=== PATIENT | male | born 1950 | race Caucasian/White ===

== ENCOUNTER 2016-09-23 12:26 | Inpatient (IN) | payer OTHER, MEDICARE ==
--- NOTE | 2016-09-23 13:19 | EDPHY ---
H & P Time Seen by Provider: 09/23/16 12:55 HPI/ROS: CHIEF COMPLAINT: Worsening depression, ataxia, word-finding difficulty HISTORY OF PRESENT ILLNESS: 66-year-old patient arrives with his and friend who was another management development specialist. Over the last 2 weeks he has been increasingly depressed and off balance and trouble with word finding. He could not remember that he was on paroxetine worse in the past he can always remember his medications. He was on a fishing trip with his friend last week and was increasingly depressed and worried that he had missed a squamous cell skin cancer on a patient. He was talking about suicide. He is increasingly depressed. He also notes that tremor and the above-mentioned neurologic symptoms. No headache or visual symptoms. He was sent here by his primary care physician for inpatient evaluation. The patient and his family think it is likely due to his multiple psychiatric medications which include paroxetine and Abilify and Lamictal and olanzapine which was started on September 06. REVIEW OF SYSTEMS: Eye: no change in vision ENT: no sore throat Cardiac: no chest pain or syncope Pulmonary: no cough or SOB Abdomen: no vomiting, diarrhea, abdominal pain Musculoskeletal: no back pain Skin: no rash Neuro: No headache, as above. Constitutional: no fever : no urinary symptoms A comprehensive 10 point review of systems is otherwise negative aside from elements mentioned in the history of present illness. 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 Eyes: No scleral icterus. ENT, Mouth: Normal mucous membranes. Respiratory: Normal respiratory effort, breath sounds equal, lungs are clear to auscultation. Cardiovascular: Regular rate and rhythm. Gastrointestinal: Abdomen is soft and non tender. Neurological: Alert and oriented x3. Speech fluent but slow. Face symmetric, normal movement and sensation in all extremities. No pronator drift and normal [id number] bilaterally, normal heel to taylor bilaterally, slight resting tremor. Skin: Warm and dry, no rashes. Musculoskeletal: No peripheral edema and no joint swelling. No meningeal signs. Psychiatric: Not agitated. Admits depression and SI, but says "I'm a coward" and denies actual intent to harm self. Emergency Department course/MDM: Plan for MRI, labs to include chemistry panel and CBC. Psychiatric evaluation if MRI normal, admission with Neurology consultation if MRI shows stroke or other a subacute abnormality. Discussed with Juany 1405, patient took tip jar at restaurant, tried to shave w /comb, put cell phone in eyeglass case. Recommends inpatient psych admission. 1510: Results discussed with patient and family, symptoms most likely due to psychiatric medications. Psychiatric evaluation requested for inpatient hospitalization and adjustment of medications. 182: Patient has had psychiatric evaluation and plan at this point is for inpatient hospitalization. 1999: Placed on a mental health hold for suicidal ideation and severe depression, and some erratic behavior as danger to self and gravely disabled. This is done in conjunction with mental health tile layer supervisor. The patient will be transferred to [facility] for inpatient psychiatric hospital bed not available at this facility, in stable condition; accepting physician is Dr. Dow. Smoking Status: Never smoked Constitutional: Initial Vital Signs Temperature (C) 37.6 C 09/23/16 12:44 Heart Rate 98 09/23/16 12:44 Respiratory Rate 16 09/23/16 12:44 Blood Pressure 149/92 H 09/23/16 12:44 O2 Sat (%) 94 09/23/16 12:44 O2 Delivery Mode Room Air Allergies/Adverse Reactions: pseudoephedrine HCl [From Actifed] Allergy (Intermediate, Verified 09/23/16 12: 51) Other-Enter Comments triprolidine HCl [From Actifed] Allergy (Verified 09/23/16 12:51) Home Medications: Medication Instructions Recorded ARIPiprazole 09/23/16 Atorvastatin Calcium 09/23/16 L-Thyroxine 09/23/16 LORazepam 09/23/16 Lamotrigine 09/23/16 Lisinopril 09/23/16 Modafinil 09/23/16 Olanzapine 09/23/16 Paroxetine ER 09/23/16 Propranolol HCl 09/23/16 Quetiapine Fumarate 09/23/16 ZOLPIDEM TARTRATE 09/23/16 Medical Decision Making - Diagnostics Imaging: MRI per Dr. Emile Cardona at 1500-for stroke or other acute abnormality. - Data Points Laboratory Results: Laboratory Results 09/23/16 13:29 09/23/16 13:29 Departure - Departure Disposition: [facility] IP Clinical Impression: Medication adverse effect Depression Qualifiers: Depression Type: major depressive disorder Major depression recurrence: recurrent Active/Remission status: currently active Major depression episode severity: moderate Qualified Code(s): F33.1 - Major depressive disorder, recurrent, moderate Condition: Good
[2016-09-23 13:35] LABS: % IMMATURE GRANULYOCYTES 0.3 % (0.0-1.1); ABSOLUTE IMMATURE GRANULOCYTES 0.02 10^3/uL (0.00-0.10); ADD DIFF? NO; ADD MORPH? NO; ADD SCAN? NO; ATYPICAL LYMPHOCYTE FLAG 10 (0-99); FRAGMENT RBC FLAG 0 (0-99); HEMATOCRIT 37.8 % (40.0-51.0); LEFT SHIFT FLG 0 (0-99); LIPEMIA HEMOLYSIS FLAG 90 (0-99); MEAN CELL HEMOGLOBIN 33.3 pg (27.9-34.1); MEAN CELL HEMOGLOBIN CONCENTR. 34.4 g/dL (32.4-36.7); MEAN CELL VOLUME 96.9 fL (81.5-99.8); MEAN PLATELET VOLUME 9.8 fL (8.7-11.7); PLATELET CLUMPS FLAG 10 (0-99); PLATELET COUNT 199 10^3/uL (150-400); RED CELL DISTRIBUTION WIDTH 13.7 % (11.5-15.2)
[2016-09-23 14:10] LABS: ANION GAP 11 mEq/L (8-16); CALCIUM 9.7 mg/dL (8.5-10.4); CARBON DIOXIDE 25 mEq/l (22-31); CHLORIDE 108 mEq/L (97-110); CREATININE 0.7 mg/dL (0.7-1.3); ETHANOL SERUM < 10 mg/dL (0-10); GLOMERULAR FILTRATION RATE > 60; GLUCOSE 92 mg/dL (70-100); POTASSIUM 4.3 mEq/L (3.5-5.2); SODIUM 144 mEq/L (134-144)
[2016-09-24] MEDS ORDERED: MAGNESIUM HYDROXIDE 30 ML UDCUP PO PRN (01:00)
[2016-09-24] MEDS ORDERED: ACETAMINOPHEN 325 MG TAB PO PRN (01:00)
[2016-09-24] MEDS ORDERED: MAG HYDROX/AL HYDROX/SIMETH 30 ML UDCUP PO PRN (01:00)
[2016-09-24] MEDS: ZOLPIDEM TARTRATE 5 MG TAB PO PRN ×2 (01:13→21:00)
[2016-09-24] MEDS: PARoxetine CR 25 MG TAB PO SCH (11:44)
[2016-09-24] MEDS: LISINOPRIL 20 MG TAB PO SCH (11:44)
[2016-09-24 14:53] LABS: % SATURATION 56 % (20-55); TOTAL IRON BINDING CAPACITY 287 ug/dL (260-490)
--- NOTE | 2016-09-24 15:05 | BCON ---
[f rep st] BEHAVIORAL HEALTH CONSULTATION INTERNAL MEDICINE CONSULTATION DATE OF CONSULTATION: 09/24/2016 REFERRING PHYSICIAN: Leslee Dow MD REASON FOR CONSULTATION: Medical clearance for inpatient behavioral health stay. 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 He also has noticed a tremor. He was concerned that his neurologic symptoms were resulting from his psychiatric medications. In the emergency department, an MRI of the brain was obtained which showed only minimal white matter changes, and so he was admitted to inpatient Psychiatry. Had he had an abnormal MRI he would [facility]. He currently reports that he is feeling better, and he is without any acute medical complaints. PAST MEDICAL HISTORY: 1. Depression. 2. Hypothyroidism. 3. Essential tremor for which he has been treated with propranolol. 4. Meniscus tear in one of his knees which has not been treated surgically. PAST SURGICAL HISTORY: He has had hernia repairs. MEDICATIONS: Prior to admission. 1. Aripiprazole. 2. Atorvastatin. 3. Levothyroxine. 4. Lorazepam. 5. Lamotrigine. 6. Lisinopril. 7. Modafinil. 8. Olanzapine. 9. Paroxetine. 10. Propranolol. 11. Quetiapine. 12. Zolpidem. ALLERGIES: Listed to pseudoephedrine and triprolidine. SOCIAL HISTORY: He is . He lives with his . He is a recently retired business support coordinator. He also reports that he has had other recent stressors, including remodeling a house and trying to sell it and the of his mother. FAMILY HISTORY: Noncontributory. REVIEW OF SYSTEMS: He reports that he has a tremor. He has had poor sleep and for a number of years has been taking zolpidem as well as lorazepam. He habitually has 1 glass of wine a night but in recent weeks had increased it to drinking bourbon. He has had some weight loss along with his depression. He denies neurologic symptoms, including no headaches, vision changes, difficulty swallowing, weakness, numbness or tingling of the extremities. He has had a shuffling gait, but that has improved with discontinuing his multiple psychiatric medications. He denies nausea, vomiting, constipation, or diarrhea. He denies chest pain or palpitations. He denies dyspnea or cough. He denies joint pain or joint swelling, and otherwise a 10-point review of systems is negative. PHYSICAL EXAM: VITAL SIGNS: Blood pressure is 177/90, heart rate is 79, respiratory rate is 12, oxygen saturation is 96% on room air, temperature is 37.1 degrees centigrade. Weight is 66.7 kg for a body mass index of 23.7. GENERAL: This is a well-nourished, well-developed man, looks somewhat older than his chronologic age, cooperative, and in no acute distress. HEENT: Extraocular movements are intact. Pupils are equal, round, and reactive to light. Mucous membranes are moist. Dentition is in good condition. There is no posterior oropharyngeal mucus. NECK: Supple. HEART: There is a regular rate and rhythm with no murmurs, rubs, or gallops. LUNGS: Clear to auscultation bilaterally. ABDOMEN: Soft, nontender, nondistended with normoactive bowel sounds. EXTREMITIES: There is no cyanosis, clubbing, or edema. NEUROLOGIC: He is alert and oriented x3. Cranial nerves 2-12 are grossly intact. There is no focal weakness. Sensation is intact to light touch , and gait is within normal limits. LABORATORY STUDIES: Drawn in the emergency department. CBC revealed anemia with a hemoglobin of 13 and hematocrit of 37.8. His MCV was normal. Platelet count was normal. Serum chemistry showed normal renal function and electrolytes. Toxicology screen within the serum was negative for ethyl alcohol. Toxicology screen in the urine was non-negative for benzodiazepines and was otherwise negative for substances of abuse. ASSESSMENT/RECOMMENDATIONS: 1. Mental health issues. Pending further evaluation and management per Psychiatry and the mental health team. 2. Hypothyroidism. Within normal TSH in June. I see no indications to repeat a TSH. 3. Tremor and markedly elevated blood pressure. These may be signs of benzodiazepine withdrawal. He also reports increased use of alcohol in recent weeks. I see lorazepam has been ordered. Advise considering the [facility] protocol to manage possible withdrawal. 4. Benzodiazepine dependence. 5. Anemia of unclear etiology. I have ordered an iron panel to be added onto the blood samples that were drawn yesterday. 6. Recent word-finding difficulties and gait abnormality. These may be related to a combination of use of sedatives and hypnotics as well as alcohol, lack of sleep and recent stressors. He appears to be doing better now that he is not taking psychiatric medications and is in a place where his depression can be addressed. Consider a cognitive evaluation by Speech Therapy while he is inpatient or by a clinical psychologist after discharge. I see no medical contraindications to the patient's continued stay on the inpatient behavioral health unit or to any psychiatric medications or procedures. Thank you very much for including me in the care of the patient and please do not hesitate to contact me or the hospitalist service should there be need for further medical evaluation. /[id number]/MODL MTDD
--- NOTE | 2016-09-24 20:16 | BAPA ---
[f rep st] ADMISSION PSYCHIATRIC ASSESSMENT DATE OF SERVICE: 09/24/2016 CHIEF COMPLAINT: "I have been having a really hard time." HISTORY OF PRESENT ILLNESS: The patient is a 66-year-old male with a history of major depression. He reports a single episode of major depression approximately 10 years ago, for which he was treated with Paxil and Wellbutrin, and did well. He was managed over the next several years with the addition of Lamictal, though it is unclear exactly why. He states that he stayed stable and after approximately 5 years discontinued both the Lamictal and Wellbutrin, and continued on the Paxil alone. He states that he maintained a euthymic state until approximately 6 months ago when he began to feel more depressed. He states that his mother in January and that this was upsetting to him. Specifically, he stated that he had regretted "being too tough with her." He states that he was trying to encourage her to get out of bed and felt that she had "many more years of a productive life." When she passed, he felt guilty that he had been in his opinion too tough. He has perseverated on this and began to feel more depressed since March. He saw his outpatient psychiatrist, Dr. Scott, who put him back on Wellbutrin, but this caused significant tremor. He also experienced some anxiety and agitation at this time , and the Wellbutrin was discontinued. Dr. Scott then started Abilify which initially was helpful, but then he developed more tremor again, and it was discontinued after about 6-8 weeks of therapy. Lamictal was restarted and then Seroquel, Zyprexa, and propranolol in succession. In July of this year, he states he became more tremulous, had difficulty with ambulation, and became confused. 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 This progressed, and he became concerned about his ability to perform safely at work. He also began to perseverate about his fear about bad outcomes of patients he has previously treated. 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 He became particularly worried about one case that he felt he missed a potential diagnosis of a patient. He states that 10 years ago, this was also the case. When he gets depressed and anxious, he begins to perseverate in this way. Most recently, he traveled to [place] on 09/20/2016, and all of these symptoms became worse. He was unable to navigate his way around the airport and was "acting like a child." The airline directed him to the [employer] claim where his friend met him, and they went to his home. He stated that he woke up the friend at least 20 times in the middle of the night disoriented and worried and unable to convey his concerns. The friend then contacted the patient's and traveled back to [place] with him. He and his and the friend then came to the emergency department yesterday stating that he needed to be evaluated for what they had thought was likely side effects from his medications. On 09/20/2016, his friend who is also a physician convinced him to stop all of his medications for fear of the side effects. Since that time, he has noted gradual improvement, though did agree to present to the hospital and get a medication evaluation. At this time, he states that his tremors have essentially resolved. His gait has returned to normal, and his thinking is better. He continues to have some stuttering speech and some intermittent confusion, though he feels much better. When asked about other concerns, he states that he is in the process of renovating his home, which is disturbing to him because he is a private person and does not like to have the workers in the home, and they are also building a home which they intend to move into. He states that he is also going to retire from his practice and is being held to a 30-day out contractually, and does not feel he can safely practice. He consulted with several colleagues who also agreed that he should not practice, though his partner is resistant to this at this time. He states that his mood has improved. He feels supported and feels that if he was to have relief from his occupational duties, he would likely be able to recover. PAST PSYCHIATRIC HISTORY: The patient's first major depressive episode was 10 years ago with no preceding symptoms throughout his life. He states at that time, he was having similar psychosocial problems with a law suit against a partner he was trying to separate a practice from and felt overwhelmed. He took Paxil and Wellbutrin at the time as mentioned, as well as Lamictal, and had resolution of his symptoms. He sees Dr. Polo Scott and Negrito Ellis in psychotherapy. He has had no previous psychiatric hospitalizations or suicide attempts. He made some statements recently regarding not wanting to continue in his condition, though denies adamantly that he is suicidal. ALLERGIES: To pseudoephedrine which causes him sedation. MEDICATIONS: Lisinopril 20 mg daily, Lipitor 5 mg daily, and Synthroid 125 mcg daily. He was most recently taking Paxil CR 50 mg daily, Lamictal 200 mg daily , and Seroquel 100 mg at bedtime. He has taken Ambien 10 mg at bedtime for 10 years every night with 0.5 to 1 mg of Ativan with good effect. PAST MEDICAL HISTORY: Significant for obstructive sleep apnea, for which he uses CPAP. SOCIAL HISTORY: He is born and raised in [place]. He has been for 37 years and has 3 children, with whom he has good relationships. His is a retired teacher, and he states that their relationship is better after the children have gone and they have matured. He is moving into a new house as mentioned above, and this is stressful. His main hobby throughout his life is fly fishing, and he states that he has traveled the world fly fishing every country but [place]. He also enjoys going to a cabin in [facility], reading, and cross-country skiing. He uses no substances and notes no other stressors. FAMILY HISTORY: The patient has 2 great aunts with bipolar disorder, and he stated that his mother and brother had "obsessive cleaning problems." ADMISSION LABORATORY: CBC shows H and H down at 13 and 37.8. MCV is normal at 96.9. Serum chemistries are normal. Iron and TIBC are normal. Iron saturation is actually high at 56. Urine drug screen is positive for benzodiazepines; otherwise, negative for substances of abuse. MRI of brain showed some periventricular white matter disease, otherwise normal. MENTAL STATUS EXAMINATION: Reveals a healthy-appearing male who is well groomed, pleasant, and cooperative. He interacts well with the examiner, maintaining good eye contact and normal interpersonal interactions. His affect is somewhat constricted and slightly anxious, but stable and appropriate. His mood is described as "not too bad." His thought process is linear and goal- directed. His thought content reveals no evidence of psychosis. It is of note that his speech is at times stuttering, though there is no evidence of language dysfunction or paraphasic errors. He is alert and oriented to person, place, time, and situation. His sensorium is clear. Attention and concentration are good. There is no evidence of delirium or gross cognitive deficits. His intellect appears to be above average as evidenced by his educational and occupational history, fund of knowledge, and vocabulary. He repeatedly denies any thoughts of suicide. His insight and judgment appear to be good. IMPRESSION: 1. Major depressive disorder, recurrent, severe, without psychosis, likely medication-induced parkinsonism or extrapyramidal side effects. 2. Occupational conflicts. 3. Transitional issues related to moving and also phase of life issues in [facility]. 4. Grief from of his mother. The patient is a 66-year-old male with a history of recurrent major depression. He has kind of an obsessive-compulsive anxiety that seems to arise when he is depressed, and is characterized by catastrophic fears of inadvertent harm. This is not an ongoing or enduring problem, but seems to again be present when he is more depressed. It is certainly possible he is using an atypical antipsychotic that accentuates this, though I believe it is more innate to his depressive disorder. I cannot explain his acute confusion or language dysfunction, though it could be possibly related to his depression as well. All of this has improved greatly after he stopped his medications. I have discussed with him the likely importance of continuing the Paxil, though decreasing from the increased dose of 50 mg back to 25 mg would likely decrease both any excessive activation as well as any tremor. He is agreeable to restarting the Paxil CR at 25 mg, and we will do that today. We will also continue his medical medications, but no other psychotropics. He is agreeable to staying with us for evaluation and observation, and I hope to see him improve. I have a message in to Dr. Scott, though I have not heard back at the time of this dictation. Estimated length of stay is 3-5 days. /[id number]/MODL MTDD
[2016-09-25] MEDS ORDERED: LEVOTHYROXINE 125 MCG TAB PO SCH (06:00)
[2016-09-25] MEDS: LISINOPRIL 20 MG TAB PO SCH (08:37)
[2016-09-25] MEDS: PARoxetine CR 25 MG TAB PO SCH (08:37)
[2016-09-25] MEDS: LORazepam 0.5 MG TAB PO PRN ×2 (08:51→20:59)
[2016-09-25] MEDS: LEVOTHYROXINE 125 MCG TAB PO SCH (11:12)
[2016-09-25] MEDS ORDERED: ZOLPIDEM TARTRATE 5 MG TAB PO PRN (11:57)
[2016-09-26] MEDS: LORazepam 0.5 MG TAB PO PRN (05:59)
[2016-09-26 06:03] VITALS: RESP 14
[2016-09-26] MEDS: LISINOPRIL 20 MG TAB PO SCH (08:34)
[2016-09-26] MEDS: LEVOTHYROXINE 125 MCG TAB PO SCH (08:35)
[2016-09-26] MEDS: PARoxetine CR 25 MG TAB PO SCH (08:35)
[2016-09-26 11:25] VITALS: BP 139/88; PULSE 95; TEMP 98.3; O2SAT 95
[2016-09-26] MEDS ORDERED: PROPRANOLOL HCL 10 MG TAB PO PRN (11:33)
--- NOTE | 2016-09-26 14:25 | SOAPPROG ---
SOAP Progress Note Assessment/Plan: Assessment: Plan: 09/26/16 14:25 Improved. Will increase paroxetine to 40mg, monitor. Subjective: LATE ENTRY FOR 09/25/16 Pt seen, discussed with staff. Reports feeling "a little better." Pt is interviewed alone and with his present. Reviewed again his hx and current plan. He reports continued obsessive, irrational worry about possible missed dx in past surgeries. Pt and agreeable to increasing paroxetine to better address this. Objective: Vital Signs Temp Pulse Resp BP Pulse Ox 36.8 C 95 14 139/88 H 95 09/26/16 11:25 09/26/16 11:25 09/26/16 11:25 09/26/16 11:25 09/26/16 11:25 MSE: Moderately anxious, coop. Affect is constricted, stable. Mood is "better , but worried." TP linear TC reveals no psychosis. - Time Spent With Patient Time Spent With Patient: 35" ICD10 Worksheet Patient Problems: Problems Problem Status Onset Depression Acute Medication adverse effect Acute
[2016-09-27 08:12] LABS: HEMATOCRIT 39.8 % (40.0-51.0)
[2016-09-27] MEDS ORDERED: PARoxetine HCL 20 MG TAB PO SCH (09:00)
--- NOTE | 2016-09-30 16:29 | BDS ---
[f rep st] [facility] DISCHARGE SUMMARY REASON FOR ADMISSION: Patient is a 66-year-old male with a history of major depression, who recentl y was suffering some very odd physical and neurologic, as well as emotional problems. He was aldo t in by his family after he went to visit a friend out of state and was essentially unable to commun icate or function. The friend brought him back and accompanied him to [place], where the friend and the patient's brought him to the emergency department. He stated that he had been treated wit h several psychotropic medicines, including Wellbutrin and then a series of atypicals, including Ser oquel, Zyprexa, and Abilify. Through this, he developed some tremors and gait disturbance, and then eventually some speech dysfunction. By the time he presented, he had stopped all of the medicines for the preceding 5 days and had returned close to normal by his estimation. A full description of the events preceding admission can be found in his admission history dated 09/24/2016. ADMISSION PHYSICAL EXAMINATION: Performed by Dr. Fernando Duong shows a tremor, though no other ne urologic issues. ADMISSION LABORATORY: CBC shows H and H down to 13 and 37.8, otherwise normal. Serum chemistries a re normal. Iron saturation is up at 56. Iron TIBC is normal. Urine drug screen is positive for be nzodiazepines. HOSPITAL COURSE: Patient was admitted to the [facility] inpatient unit on a M1 hold. He made some vague statements regarding suicide and he was thought to possibly be a danger to himse lf. He disavowed this once he was admitted and did not seem to be a danger to himself. He was conv erted to a voluntary status while on the unit. I evaluated the patient on 09/24/2016 and noted him to be in much better shape than had been reported. His language was normal. He had a mild bilatera l hand tremor that was somewhat parkinsonian, but normal gait. He was well oriented and conversant, and able to interact. I suggested to him the possibility of restarting at least some of his psycho tropic medicines given his history of depression. His mother had in the past year and he had s ome protracted grief. He also had some phase of life issues with facing senior living and some physica l disability from his increasing tremor. He ultimately was agreeable to restarting his Paxil, which we did at 20 mg and then increased to 40 mg daily. The patient presented on the CR at 50 mg, and I thought it was possible that the higher dose was contributing to his tremor, though certainly not c ausative. When we restarted at 20 mg, we noticed the re-emergence of some of his negative obsessive thinking. 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 When we increased back to 40, this did seem to improve, though it w as a very brief stay. I was able to meet with the patient and his , and establish some goals for the short-term. Prim arily these were for his physical and cognitive symptoms to remain stable. They did agree to restar t the propranolol, but at a relatively low dose of 10 mg every 6 as needed for his tremor as it was worsening. The patient's hospital course was otherwise uncomplicated. He was pleasant and interactive, and par ticipated actively in all therapies. CONDITION AT DISCHARGE: Stable. We were able to release him in his normal cognitive state with no thoughts of suicide. DISCHARGE MEDICATIONS: Levothyroxine 125 mcg daily, lisinopril 20 mg daily, lorazepam 0.5-1 mg q.h. s. p.r.n., Paxil 40 mg daily, propranolol 10 mg q.6h p.r.n., and Ambien 10 mg h.s. DISCHARGE DIAGNOSES: 1. Major depressive disorder, recurrent, severe, without psychosis. 2. Medication-induced parkinsonism/extrapyramidal side effects. 3. Occupational conflict. 4. Transitional life issues. 5. Protracted grief over of his mother. DISPOSITION: Patient left the hospital with his . FOLLOWUP: With Dr. Scott as scheduled by rn complex care. LEGAL COURSE: Patient was converted to a voluntary status at the expiration of his M1 hold. /[id number]/MODL
== END 2016-09-26 12:55 | disposition home or self-care (01) | DRG 885 ==
LOC: BBEH 09-24 00:45
PROVIDERS: ADMIT Psychiatry & Neurology Behavioral Neurology & Neuropsychiatry; ATTEND Psychiatry & Neurology Psychiatry
DX: F33.2 Major depressive disorder, recurrent severe without psychotic features (principal); F13.20 Sedative, hypnotic or anxiolytic dependence, uncomplicated; F43.29 Adjustment disorder with other symptoms; R25.1 Tremor, unspecified; D64.9 Anemia, unspecified; I10 Essential (primary) hypertension; E03.9 Hypothyroidism, unspecified
CPT/HCPCS: 80305; G0463-PO; G0480